=== PATIENT | male | born 1990 | race Caucasian/White ===

== ENCOUNTER 2020-04-12 07:00 | Emergency (ER) | payer OTHER ==
[~2020-04-12] VITALS: Ht 165.1 cm; Wt 71.3 kg
[2020-04-12] MEDS ORDERED: LIDOCAINE 1% Multi-Dose 20 ML VIAL. ONE (07:14)
[2020-04-12 07:31] VITALS: BP 137/78
[2020-04-12] MEDS ORDERED: DIPH,PERTUSS(ACELL),TET VAC/PF 0.5 ML SYRINGE. VAX IM ONE ×2 (07:41→07:45)
--- NOTE | 2020-04-12 07:47 | PHYS DOC ---
Past History Past Medical History: Other Additional Past Medical Histor: Colitis Past Surgical History: No Surgical History Alcohol Use: None General Adult EDM: Chief Complaint: LACERATION/AVULSION HPI: HPI: Patient is a 29-year-old male presenting to the ED with a chief complaint of finger laceration to his right second digit. 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 Patient is not sure when his last tetanus shot was. Patient denies any other injury. He has a small abrasion to his right thumb. Review of Systems: Review of Systems: Constitutional: Denies fever or chills Eyes: Denies change in visual acuity HENT: Denies nasal congestion or sore throat Respiratory: Denies cough or shortness of breath Cardiovascular: Denies chest pain or edema Integument: Complains of laceration to his right second finger Heart Score: Risk Factors: Risk Factors: DM, Current or recent (<one month) smoker, HTN, HLP, family history of CAD, obesity. Risk Scores: Score 0 - 3: 2.5% MACE over next 6 weeks - Discharge Home Score 4 - 6: 20.3% MACE over next 6 weeks - Admit for Clinical Observation Score 7 - 10: 72.7% MACE over next 6 weeks - Early Invasive Strategies Current Medications: Current Meds: Current Medications Medications (Trade) Dose Ordered Sig/Ivory Start Time Stop Time Status Last Admin Dose Admin Diphtheria/ Pertussis/Tetanus Vacc (ADACEL TDap SYRINGE) 0.5 ml ONCE ONCE 04/12/20 07:45 04/12/20 07:46 UNV Lidocaine HCl 20 ml STK-MED ONCE 04/12/20 07:14 04/12/20 07:15 DC Allergies: Allergies: Allergies Coded Allergies Type Severity Reaction Last Updated Verified No Known Drug Allergies 04/12/20 No Physical Exam: PE: Constitutional: Well developed, well nourished, no acute distress, non-toxic appearance. [] HENT: Normocephalic, atraumatic Eyes: EOMI Neck: Normal range of motion, Supple Respiratory: No respiratory distress Extremities: 3 cm laceration to the second finger on the right hand. Laceration is between the DIP and PIP and the dorsal aspect of the hand. Neurovascularly intact distally to the injury. Patient is able to bend his injured finger. Neurologic: Alert and oriented X 3 Current Patient Data: Vital Signs: Vital Signs Date Time Temp Pulse Resp B/P (MAP) Pulse Ox O2 Delivery O2 Flow Rate FiO2 04/12/20 07:31 98.4 89 16 137/78 (97) 99 Room Air EKG: EKG: [] Radiology/Procedures: Radiology/Procedures: [] Course & Med Decision Making: Course & Med Decision Making We will close wound with sutures. Wound closed with 5 sutures. Patient tolerated procedure without any difficulty. Tetanus updated in the ED. Dressing applied to the wound. Patient instructed to return back to the ED in 7 to 10 days or with PCP to have the sutures removed. Laceration repair procedure: Lidocaine 1% without epinephrine used. This was used as an anesthetic. 3 cc used. Patient was cleaned with Betadine as well as saline irrigation. Irrigated with over 50 cc of fluid. Prolene 5-0 suture used. 5 sutures total. Wound is well approximated. Laceration is linear. Neurovascularly intact. Bleeding controlled. Patient tolerated procedure without any complications. Discussed plan of care with patient. Patient is instructed to follow up with PCP in one to 2 days. Appropriate discharge instructions given to patient to return to the ED or to seek immediate medical evaluation. Patient is instructed to return to the ED if symptoms worsen or if any concerns. Dragon Disclaimer: Dragon Disclaimer: This electronic medical record was generated, in whole or in part, using a voice recognition dictation system. Departure Departure: Impression: Primary Impression: Finger laceration Disposition: 01 HOME/RESIDENCE PRIOR TO ADM Condition: STABLE Referrals: PCP,UNKNOWN (PCP) Patient Instructions: Laceration Care, Adult Additional Instructions: Sutures to be removed in 7 to 10 days. Discussed plan of care with patient. Patient is instructed to follow up with PCP in one to 2 days. Appropriate discharge instructions given to patient to return to the ED or to seek immediate medical evaluation. Patient is instructed to return to the ED if symptoms worsen or if any concerns. Justification of Admission: Justification of Admission: Justification of Admission Dx: GABY Sapp DO Apr 12, 2020 07:47
== END 2020-04-12 07:53 | disposition home or self-care (01) ==
LOC: ER 07:00
DX: S61.210A Laceration without foreign body of right index finger without damage to nail, initial encounter (principal); W26.8XXA Contact with other sharp object(s), not elsewhere classified, initial encounter; Y93.89 Activity, other specified; Y92.89 Other specified places as the place of occurrence of the external cause; Y99.8 Other external cause status
CPT/HCPCS: 12002; 90471; 90715; 99283